=== PATIENT | male | born 1985 ===

== ENCOUNTER 2021-04-22 22:00 | Emergency (ER) | payer OTHER ==
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
[2021-04-22] MEDS ORDERED: Ketorolac 30 MG/ML SDV IM ONE (23:32)
[2021-04-22] MEDS ORDERED: Diazepam 2 MG Tab PO ONE (23:32)
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
== END 2021-04-23 00:55 | disposition home or self-care (01) ==
LOC: MW.ED 22:00
DX: R51.9 Headache, unspecified (principal); M54.9 Dorsalgia, unspecified; R07.9 Chest pain, unspecified; M25.551 Pain in right hip; R42 Dizziness and giddiness; V89.2XXA Person injured in unspecified motor-vehicle accident, traffic, initial encounter; Y92.410 Unspecified street and highway as the place of occurrence of the external cause
CPT/HCPCS: 71045; 73501; 96372; 99284; A9270; J1885